=== PATIENT | female | born 1995 | race Caucasian/White ===

== ENCOUNTER 2018-10-19 09:34 | Inpatient (IN) ==
[2018-10-19] MEDS ORDERED: RINGER'S SOLUTION,LACTATED 1,000 ML IV ONE (10:04)
[2018-10-19] MEDS ORDERED: DEXTROSE 5%-LACTATED RINGERS 1,000 ML IV PRN (10:04)
[2018-10-19] MEDS ORDERED: ONDANSETRON HCL/PF 2 MG/ML VIAL IV PRN ×2 (10:04→12:58)
[2018-10-19] MEDS ORDERED: OXYTOCIN/DEXTROSE 5%-WATER 30 UNITS/500 ML BAG IV ONE ×2 (10:04→15:34)
[2018-10-19 11:16] LABS: Cocaine Ur Negative (NEGATIVE); Urine Barbiturate Negative (NEGATIVE); Urine Benzodiazepines Negative (NEGATIVE); Urine Opiates Negative (NEGATIVE); Urine PCP Negative (NEGATIVE); Urine THC Negative (NEGATIVE)
--- NOTE | 2018-10-19 12:55 | HP ---
Chief Complaint - Chief Complaint Date of Service: 10/19/18 Time of Service: 12:53 Chief Complaint: contractions History of Present Illness: 23 yo at 39 2/7wks presents to L&D complaining of frequent contractions of increasing intensity. This complicated by THC use in 1st trimester. Rh positive Rubella immune GBS negative Medical History (Last Reviewed 10/12/18 @ 14:10 by Isabella Vasquez LPN) Wears glasses Fungal skin infection Onset Date: Unknown Mononucleosis Onset Date: ~05/2012 Surgical History: Surgical History (Last Reviewed 10/12/18 @ 14:10 by Isabella Vasquez LPN) No history of previous surgery Family History: Family History (Last Reviewed 10/12/18 @ 14:10 by Isabella Vasquez LPN) Father Arthritis Diabetes Obesity Brother Asthma Past history Grandmother Depression Hyperlipemia Hypertension Obesity Grandmother Arthritis CVA (cerebral vascular accident) Multiple Brother ADHD Depression Bipolar disorder Grandfather Myocardial infarction Social History: Preferred Language Spanish Smoking Status Former smoker (Last Updated 10/19/18 @ 09:33 by Layo Del Castillo DO) No Social History Section defined Review Of Systems (GEN) - Review of Systems Generalized/Overall Review: Present: No Symptoms Reported EENTM: Present: No Symptoms Reported Respiratory: Present: No Symptoms Reported Cardiac: Present: No Symptoms Reported Abdominal: Present: No Symptoms Reported, Other - contractions Genitourinary: Present: No Symptoms Reported Musculoskeletal: Present: No Symptoms Reported Neurological: Present: No Symptoms Reported Skin: Present: No Symptoms Reported Endocrine: Present: No Symptoms Reported Allergies/Adverse Reactions: Allergies Allergy/AdvReac Type Severity Reaction Status Date / Time cefdinir AdvReac Unknown Rash Verified 10/19/18 09:57 Home Medications: HOME MEDICATIONS vitamin,calcium,gfexmbcx-xewx-wrivz acid tablet 1 tab PO DAILY 06/07/18 [Last Taken Unknown] Exam - Exam Vital Signs: Vital Signs - Last Taken Temp 36.9 C 10/19/18 11:36 Pulse 97 10/19/18 11:36 Resp 18 10/19/18 11:36 BP 131/69 10/19/18 11:36 Pulse Ox 97 10/19/18 11:36 Constitutional: Present: Alert, Oriented x3, Cooperative, No distress ENT Exam: Present: hearing grossly normal Breasts: Present: Exam deferred Respiratory: Present: lungs clear, no respiratory distress Cardiovascular/Chest: Present: regular rate, rhythm, no edema Abdomen: Present: Normal bowel sounds, soft, no rebound tenderness, other - gravid /Rectal: Present: Other - cervix - 4-5/50/-2 Extremity: Present: no pedal edema, no calf tenderness Skin Exam: Present: warm/dry Lymphatic: Present: no adenopathy Neurologic: Present: normal mood/affect, oriented x 3 Appearance: Present: appropriate appearance, appropriate insight Eye contact: Present: cooperative, good eye contact, normal speech Thoughts: Present: normal thought pattern Diagnostic Studies: Laboratory Results Urine Opiates Screen Negative (NEGATIVE) 10/19/18 10:15 Barbiturate Screen Negative (NEGATIVE) 10/19/18 10:15 Ur Phencyclidine Scrn Negative (NEGATIVE) 10/19/18 10:15 Urine Amphetamine Negative (NEGATIVE) 10/19/18 10:15 U Benzodiazepines Scrn Negative (NEGATIVE) 10/19/18 10:15 Urine Cocaine Screen Negative (NEGATIVE) 10/19/18 10:15 Urine Marijuana (THC) Negative (NEGATIVE) 10/19/18 10:15 Assessment/Plan - Assessment/Plan (1) Labor established Assessment: Routine management of labor. Epidural PRN. Problem: Acute
[2018-10-19] MEDS ORDERED: BUPIVACAINE HCL/0.9 % NACL/PF 250 ML EP PRN (12:58)
[2018-10-19] MEDS ORDERED: NALOXONE HCL 1 MG/1 ML SYRG IV PRN (12:58)
--- NOTE | 2018-10-19 12:58 | PN ---
Progess Note - Interim Date: 10/19/18 Time: 12:55 Narrative: 10/19/18 12:55 Patient more uncomfortable with contractions AFVSS FHT 150, good BTBV, accelerations, no decelerations. Ctxs q1-2 min Cvx - 6/50/-2, AROM - clear fluid IMPRESSION: 39 2/7 wk labor PLAN: Continue routine management of labor. Epidural PRN.
[2018-10-19] MEDS ORDERED: fentaNYL CITRATE/PF 50 MCG/ML AMPUL IT SCH (13:00)
--- NOTE | 2018-10-19 14:48 | ANES ---
Post Anesthesia Discharge - Transfer of Care Transfer of Care handoff given to nurse: Yes - Anesthesia Post Op Note Anesthesia Post Op Note: Care transferred to OB RN
--- NOTE | 2018-10-19 14:48 | ANES ---
Post Anesthesia Assessment - Vital Signs Vitals: Last Vital Signs Temp 36.9 C 10/19/18 11:36 Pulse 97 10/19/18 11:36 Resp 18 10/19/18 11:36 BP 131/69 10/19/18 11:36 Pulse Ox 97 10/19/18 11:36 Airway Patency: Normal - Mental Status Level Of Consciousness: Awake - Pain Level Pain Score: 2 - N/V Assessment Nausea/Vomiting Presence: None Dehydration:: No
--- NOTE | 2018-10-19 14:48 | ANES ---
Anesthesia Pre Procedure Eval Vitals/Labs: Last Vital Signs Temp 36.9 C 10/19/18 11:36 Pulse 97 10/19/18 11:36 Resp 18 10/19/18 11:36 BP 131/69 10/19/18 11:36 Pulse Ox 97 10/19/18 11:36 HOME MEDICATIONS vitamin,calcium,nmacuwnn-clll-alcsx acid tablet 1 tab PO DAILY 06/07/18 [Last Taken Unknown] Allergies/Adverse Reactions: Allergies Allergy/AdvReac Type Severity Reaction Status Date / Time cefdinir AdvReac Unknown Rash Verified 10/19/18 09:57 - Planned Procedure Planned Procedure: ACTIVE LABOR Medication List Reviewed:: Yes Allergies Verified: Yes Medical History (Last Reviewed 10/19/18 @ 14:47 by Ilan Sierra CRNA) Wears glasses Fungal skin infection Onset Date: Unknown Mononucleosis Onset Date: ~05/2012 Surgical History (Last Reviewed 10/19/18 @ 14:47 by Ilan Sierra CRNA) No history of previous surgery Family History (Last Reviewed 10/19/18 @ 14:47 by Ilan Sierra CRNA) Father Arthritis Diabetes Obesity Brother Asthma Past history Grandmother Depression Hyperlipemia Hypertension Obesity Grandmother Arthritis CVA (cerebral vascular accident) Multiple Brother ADHD Depression Bipolar disorder Grandfather Myocardial infarction - Family Anesthesia History Family History:: no untoward family reactions to anesthesia - Airway/Neck/Teeth Within Normal Limits:: Yes Teeth Condition: intact Neck Exam: full range of motion Mallampatti Score: 2 Thyromental (T-M) distance: > 6 cm Mandibulo Hyoid distance: > 3 cm - Respiratory Respiratory Physical: lungs clear Smoking Status: Never smoker Sleep Apnea currently treated: No Sleep Apnea by current assessment: No - Cardiovascular Tolerate Activity: Good Heart Sounds: S1 & S2, Regular - Anesthesia Assessment and Plan ASA Class: PS, II, E Anesthesia Type Plan: Epidural Planned difficult intubation/equipment available: No
--- NOTE | 2018-10-19 14:50 | ANES ---
Anesthesia Procedure Note Procedure Note: ANESTHESIA PROCEDURE NOTE Date of Procedure: [] 10/19/2018 Time of procedure:[]. 144 Performed by: Marcus Sierra CRNA [employer] Supervisor: None. Preprocedure diagnosis: Active labor. Post procedure diagnosis: Same. Procedure: Insertion of labor epidural. Indications: The patient is a [23] -year-old [multi gravid] female in active labor requesting labor epidural for pain management. Findings: See below. Details of the procedure: The patient was placed in a sitting position. Back was prepped with DuraPrep. Patient was then draped in a sterile fashion. Lidocaine 1% was infiltrated to the skin and subcutaneous tissues at the level of the L3 4 interspace. The epidural space was identified using a 18-gauge Tuohy needle with jyxy-hx-rnbgewgxyc technique. 20 mcg fentanyl was given intrathecally using a 27 ga. spinal needle. Epidural catheter was inserted without difficulty. Negative test dose was elicited using 3 mL of 2% preservative-free lidocaine plus epinephrine 1 200,000. The epidural catheter was then taped and secured in place. EBL: Minimal. Fluids: N/A. Specimen: N/A. Post procedure condition: The patient tolerated the procedure well. No complications were noted. Thank you for this consultation. Morin CRNA
[2018-10-19] MEDS ORDERED: BENZOCAINE/MENTHOL 81 SPRAY CAN TP PRN (15:34)
[2018-10-19] MEDS ORDERED: GLYCERIN/WITCH HAZEL LEAF 40 APPL BOX TP PRN (15:34)
[2018-10-19] MEDS ORDERED: BISACODYL 10 MG SUPP.RECT RC PRN (15:34)
[2018-10-19] MEDS ORDERED: diphenhydrAMINE HCL 25 MG CAPSULE PO PRN (15:34)
[2018-10-19] MEDS ORDERED: SENNOSIDES 8.6 MG TABLET PO PRN (15:34)
[2018-10-19] MEDS ORDERED: HYDROCORTISONE 30 APPL TUBE TP PRN (15:34)
--- NOTE | 2018-10-19 15:34 | OR ---
Operative Report - Dictated Report Narrative: Spontaneous Vaginal Delivery Note: 23 yo, , 39.2 weeks labor GBS negative. pitocin augmentation Analgesia: epidural Progressed to complete without complications. Perineum cleaned with betadine. Pushed with good descent. Head delivered in OA over the perineum. No nuchal cord. The anterior shoulder delivered, followed by the posterior shoulder and the rest of the baby. Baby cried at perineum. Baby placed on maternal abdomen for drying and care by the nursing. Cord was clamped at one minute of life and cut by the father of the baby. Cord blood was obtained. Placenta delivered intact with a 3 vessel cord. Mother and baby tolerated the delivery well. Laceration: none. EBL 250 ml. : female, 3568 grams. 9/9. Time of delivery: 15:14 Camille Caballero MD History for Definition: * The number of deliveries resulting in a live the patient experienced prior to current hospitalization * The previous delivery of live twins or any live multiple gestation is considered one live event. *If primagravida or nulliparous is documented select zero for the number of previous live births. Live Events: 1
[2018-10-19] MEDS: oxyCODONE HCL/ACETAMINOPHEN 1 TAB TABLET PO PRN (19:40)
[2018-10-19] MEDS: IBUPROFEN 800 MG TABLET PO PRN (19:40)
[2018-10-19] MEDS: DOCUSATE SODIUM 100 MG CAPSULE PO SCH (22:46)
[2018-10-20] MEDS: DOCUSATE SODIUM 100 MG CAPSULE PO SCH ×2 (06:21→08:15)
[2018-10-20] MEDS: IBUPROFEN 800 MG TABLET PO PRN (06:21)
[2018-10-20] MEDS: oxyCODONE HCL/ACETAMINOPHEN 1 TAB TABLET PO PRN (06:21)
--- NOTE | 2018-10-20 12:39 | PN ---
Subjective - Date and Time Seen Date: 10/20/18 Time: 12:38 Objective - Vitals Vitals: Last Vital Signs Temp 36.8 C 10/20/18 06:40 Pulse 84 10/20/18 06:40 Resp 16 10/20/18 06:40 BP 122/70 10/20/18 06:40 Pulse Ox 96 10/20/18 04:50 Patient denies complaints. Lochia wnl Abdomen - soft, nontender Uterus -firm, at umbilicus - 1 no calf tenderness Impression: day 1- s/p spontaneous vaginal delivery Plan: Continue routine care and discharge instructions. Early discharge due to inclement weather approaching per patient request. Assessment/Plan - Problems/Diagnosis (1) Labor established Problem: Acute
[2018-10-20 16:19] VITALS: BP 141/61
== END 2018-10-20 17:34 | disposition home or self-care (01) | DRG 807 ==
LOC: OB 09:34
PROVIDERS: ADMIT Obstetrics & Gynecology; ATTEND Obstetrics & Gynecology
CPT/HCPCS: 59025; 80307